=== PATIENT | female | born 1930 | race Caucasian/White ===

== ENCOUNTER → 2016-08-10 | Outpatient (CLI) | payer OTHER | LOC: LAB SRH 14:30 | DX: I50.9 Heart failure, unspecified (principal); R60.9 Edema, unspecified | CPT/HCPCS: 90074; 90100; 91284; 91320; 91556; 93140; 95059 ==

== ENCOUNTER 2016-08-15 12:59 | Outpatient (CLI) | payer OTHER ==
--- NOTE | 2016-08-15 15:09 | DIAGNOSTIC IMAGING REPORT ---
PROCEDURE: US VENOUS - BILATERAL EXT INDICATION: TENSION HEADACHE, EDEMA TECHNIQUE: Duplex sonography of the deep venous system in both lower extremities was performed. Compression and augmentation techniques were used. COMPARISON: None. FINDINGS: Each interrogated segment of deep vein from the common femoral vein into the calf veins demonstrates normal compressibility, augmentation and/or color Doppler flow without filling defect. No evidence of significant soft-tissue edema, soft-tissue mass or cyst. IMPRESSION: 1. No deep venous thrombosis in either lower extremity.
--- NOTE | 2016-08-15 18:44 | DIAGNOSTIC IMAGING REPORT ---
PROCEDURE: US KIDNEY/RENAL COMPLETE INDICATION: MICROSCOPIC HEMATURIA TECHNIQUE: Transabdominal scans of the kidneys with calculation of resistive indices. Prevoid and postvoid bladder volumes were obtained. COMPARISON: Comparison made abdominal ultrasound 08/09/2013. FINDINGS: RIGHT: Right kidney is of normal size (is 10.0 x 4.5 x 4.6 cm) with normal cortical thickness (1.0 cm). There are two to three simple right renal cysts (largest 2.0 cm midpole). There is no evidence of mass or hydronephrosis. Right renal resistive indices are normal (upper pole 0.6, mid pole 0.63, and triple 0.63). LEFT: Left kidney is of normal size (9.1 x 4.1 x 3.9 cm) with normal cortical thickness (0.9 cm). There is a 4.1 cm inferior pole simple cyst. No evidence of mass or hydronephrosis. Left renal resistive indices are normal (for pole 0.64, mid pole 0.59, intra pole 0.64). BLADDER: Pre void bladder volume is centered 8 ml with minimal residual (mL). Portions of the pelvis are visualized. Uterus is mildly atrophic (5.0 x 2.4 cm). There is moderate increase endometrial thickness (13 mm). IMPRESSION: 1. Bilateral simple renal cysts. Otherwise normal kidneys. 2. Uterus is visualized and there is moderate increased endometrial thickness (13 mm). Consider endometrial hyperplasia, polyps, or malignant neoplasia. 3. Findings called to Dr. Joseph.
== END 2016-08-15 23:00 ==
LOC: US SRH 12:59
DX: R31.29 Other microscopic hematuria (principal); R60.9 Edema, unspecified

== ENCOUNTER 2016-08-26 12:05 | Outpatient (CLI) | payer OTHER ==
--- NOTE | 2016-08-26 13:21 | DIAGNOSTIC IMAGING REPORT ---
PROCEDURE: US DUPLEX AORTA IVC ILIAC LTD INDICATION: BILAT LEG SWELLING,R/O DVT TECHNIQUE: Taylor scale, color Doppler and spectral imaging of the IVC and iliac veins COMPARISON: None. FINDINGS: The IVC, bilateral common and external iliac veins are widely patent. No evidence of thrombosis. IMPRESSION: 1. No evidence of DVT in the IVC or iliac veins. 2. Results discussed with Dr. Joseph
== END 2016-08-26 23:00 ==
LOC: US SRH 12:05
DX: M79.89 Other specified soft tissue disorders (principal)

== ENCOUNTER → 2016-09-01 | Outpatient (CLI) | payer OTHER | LOC: LAB SRH 11:24 | DX: I50.9 Heart failure, unspecified (principal) | CPT/HCPCS: 90047; 90074; 91320 ==

== ENCOUNTER → 2016-10-05 | Outpatient (CLI) | payer OTHER | LOC: LAB SRH 14:46 | DX: I50.32 Chronic diastolic (congestive) heart failure (principal); I35.1 Nonrheumatic aortic (valve) insufficiency | CPT/HCPCS: 90047; 90074; 91320 ==

== ENCOUNTER → 2016-11-30 | Outpatient (CLI) | payer OTHER | LOC: LAB SRH 15:19 | DX: I50.32 Chronic diastolic (congestive) heart failure (principal); I35.1 Nonrheumatic aortic (valve) insufficiency | CPT/HCPCS: 90100; 91320 ==